=== PATIENT | female | born 1990 | race Two or more races ===

== ENCOUNTER 2021-03-09 06:13 | Inpatient (IN) | payer OTHER, SELFPAY ==
[2021-03-09] VITALS (62 sets, daily range): BP systolic 102–139; BP diastolic 59–93; PULSE 57–147; RESP 16; TEMP 36.1–36.8; O2SAT 97–100; BMI 27.8
[2021-03-09 07:39] LABS: Basophils Percent Auto 0.3 % (0.2-1.2); Eosinophils Absolute Auto 0.2 K/mm3 (0-0.3); Eosinophils Percent Auto 1.7 % (0-4.4); Hematocrit 33.5 % (37.0-47.0); Hemoglobin 10.8 g/dL (12.0-15.0); Immature Granulocyte Absolute 0.18 K/mm3 (0.00-0.031); Immature Granulocyte Percent A 1.5 % (0-0.5); Lymphocytes Percent Auto 15.8 % (18.3-44.2); Mean Corpuscular HGB Conc 32.2 g/dl (32-36); Mean Corpuscular Hemoglobin 32.2 pg (26-34); Mean Platelet Volume 10.4 fl (7.4-10.4); Monocytes Absolute Auto 0.7 K/mm3 (0.1-0.6); Monocytes Percent Auto 5.8 % (2.6-8.5); Neutrophils Percent Auto 74.9 % (45.5-73.1); Platelet Count Result 244 k/mm3 (150-375); Red Blood Count 3.35 M/mm3 (4.2-5.4); Red Cell Distribution Width 14.3 % (11.5-14.5)
[2021-03-09] MEDS: OXYTOCIN 30 UNITS/NS 500 ML 30 UNITS/500 ML BAG IV CONT (07:51)
[2021-03-09] MEDS: LACTATED RINGERS 1,000 ML 125 ML IV CONT ×2 (07:52→12:53)
[2021-03-09] MEDS: AMPICILLIN 2 GM/NS 100 ML 2 GM/100 ML BAG IVPB (07:53)
--- NOTE | 2021-03-09 08:17 | LDADM ---
This patient, Apolinar Saul, was admitted to Labor/Delivery/Recovery 104 on 03/09/21 at 06:13. Plans for labor, pain management and were discussed with patient. Patient/family oriented to hospital policies and general routines including ID bracelet, bed and alarms, visiting hours, pain management, procedures, bathroom and other care routines, personal items, smoking policy, room service/diet and guest tray routines, infant security routines, and visiting hours. Patient/Family are encouraged to report perceived risks to care and to ask questions if they do not understand what they are told or what they should do. See OBIX for further documentation.
--- NOTE | 2021-03-09 09:39 | PM.IMHP ---
H&P: HPI History of Present Illness Date/Time: 03/09/21 09:39 Patient is a 30-year-old last menstrual period 06/09/20 currently 39 weeks gestation with an RADHA 03/16/2021 who presents to labor and delivery for a scheduled elective induction of labor at term. Patient is dated by LMP consistent with ultrasound on 08/27/2020 at 11 weeks gestation. In general, patient reports feeling well today. Reports occasional contractions. Denies vaginal bleeding or leakage of fluid. Reports good movement. Chief Complaint: Induction of labor Review of Systems Review of Systems: All systems reviewed & are unremarkable except as noted in HPI and below Constitutional: Constitutional: Reports as per HPI, Reports no additional constitutional complaints, Denies chills, Denies fever(s), Denies headache(s) and Denies night sweats Eyes: Eyes: Reports as per HPI and Reports no additional eye complaints ENT: Reports system reviewed and no additional complaints, except as documented, Reports as per HPI, Reports Normal hearing present and Denies headache(s) Cardiovascular: Cardiovascular: Reports as per HPI, Reports no additional cardiovascular complaints, Denies chest pain and Denies dyspnea Respiratory: Respiratory: Reports as per HPI, Reports no additional respiratory complaints, Denies cough and Denies dyspnea Gastrointestinal: Gastrointestinal: Reports as per HPI, Reports no additional gastrointestinal complaints, Denies abdominal pain, Denies change in bowel habits, Denies change in stool character, Denies nausea and Denies vomiting Genitourinary: Genitourinary: Reports no additional female genitourinary complaints, Reports as per HPI, Denies abnormal vaginal bleeding, Denies genital lesions, Denies hot flashes, Denies dyspareunia, Denies pelvic pain, Denies sexual dysfunction, Denies urinary incontinence, Denies vaginal discharge, Denies vaginal dryness and Denies vaginal odor Musculoskeletal: Musculoskeletal: Reports no additional musculoskeletal complaints and Reports as per HPI Integumentary/Breasts: Skin/Breast: Reports system reviewed and no additional complaints, except as docu, Reports as per HPI, Denies breast pain and Denies nipple discharge Neurologic: Reports system reviewed and no additional complaints, except as documented, Reports as per HPI, Reports Normal hearing present and Denies headache(s) Psychiatric: Psychiatric: Reports no additional psychiatric complaints, Reports as per HPI, Denies anxiety and Denies depression Endocrine: Endocrine: Reports no additional endocrine complaints and Reports as per HPI Hematologic/Lymphatic: Hematologic/Lymphatic: Reports no additional hematologic/lymphatic complaints and Reports as per HPI Allergic/Immunologic: Allergic/Immunologic: Reports no additional allergic/immunologic complaints and Reports as per HPI PMFSH Past Medical History Medical History Asthma Herpes 2011 Hx of vaginal delivery x2 Surgical History Surgical History History of surgery on arm R[place] teeth removed Family History Family History Son Asthma Social History Social History Smoking status: Never smoker Alcohol intake: never Substance use: never Spiritual care concerns: No Meds Home Medications and Allergies Home Medications Medication Instructions Recorded Confirmed Type Saccharomyces boulardii 250 mg 250 mg PO .COMPLEX 08/19/20 03/09/21 History capsule albuterol sulfate 90 mcg/actuation 1 puff INHALATION Q4H PRN #6.7 g 08/19/20 03/09/21 Rx aerosol inhaler cholecalciferol (vitamin D3) 25 25 mcg PO DAILY 08/19/20 03/09/21 History mcg (1,000 unit) capsule vits-iron 27 mg-folic ac See Rx Instructions PO .COMPLEX 09/01/20 03/09/21 Rx 1 mg-om3 312 mg-dha 250 mg oral
--- NOTE | 2021-03-09 09:52 | WPDHPUPDATE1 ---
History and Physical Update Update Date/Time: 03/09/21 09:52 History and Physical has been reviewed, including an updated exam of the patient. There are NO changes in the patient's condition. Risks, benefits, and alternatives have been discussed and questions answered. Patient agrees to proceed with procedure.
[2021-03-09 09:59] LABS: Rapid Plasma Reagin Non-Reactive (NonReactive)
[2021-03-09] MEDS: AMPICILLIN 1 GM/NS 50 ML 1 GM/50 ML BAG IVPB (11:55)
--- NOTE | 2021-03-09 13:51 | PM.OBPRVD ---
OB - Delivery Note Procedure Delivery date: 03/09/21 Procedure: A 30-year-old now 003 who presented to Labor and delivery on 03/09/2021 at 39 weeks gestation for scheduled elective induction of labor at term. Patient was admitted to Labor and delivery. Patient was GBS positive and antibiotics were started for GBS prophylaxis. Pitocin was started for labor induction and continuously titrated throughout the morning. After 2nd dose of antibiotics had been administered, artificial rupture membranes was performed at 12:08 p.m. Clear amniotic fluid was noted. Pitocin was continued. Patient became uncomfortable and requested an epidural for pain management which was placed without difficulty. Patient made quick cervical change was noted to be fully dilated at 1:09 p.m. Patient was encouraged to push and found to be pushing well. She was prepped and draped for delivery. At 1:28 p.m., head delivered atraumatically and without difficulty in EDDIE presentation. Occiput restituted to maternal right side. With subsequent push, the infant's neck, shoulders, rest of body delivered without difficulty. was crying spontaneously. Nose and mouth were suctioned with bulb suction. was placed on maternal abdomen where care was assumed by awaiting nursing staff. Infant was noted to void spontaneously. Delayed cord clamping was performed for approximately 60 seconds. Cord was clamped and cut. A segment of cord was collected for cord gases. Cord blood was collected. The placenta was delivered spontaneously and intact. Uterine fundus was noted to be firm with massage. On inspection, bilateral periurethral lacerations were noted. These lacerations were repaired with 3-0 Vicryl in usual fashion. Excellent hemostasis was noted. Estimated blood loss for entire delivery was 100 cc. was a live born female , Apgars 9 and 9, weighing 6 lb 13 oz. Both mother and baby doing well at end of delivery. events: Labor Induction Intrapartal events: None Induction method: per pitocin protocol Delivery augmentation: rupture of membranes Delivery monitor: external FHT and external uterine Route of delivery: Laceration Description: Periurethral (bilateral) Delivery repair: vicryl (3-0) Specimen: Yes (cord blood and cord gases) Quantitative Blood Loss (ml): 100 Anesthesia type: Epidural Disposition: floor Complications: No immediate complications Baby Date of : 03/09/21 Time of : 13:28 Weeks of gestation at delivery: 39 Infant gender: Female Weight (pounds): 6 Weight (ounces): 13 presentation: vertex position: Right Occiput Anterior Placenta delivery description: Spontaneous cord vessel description: 3 Vessels and Delayed Cord Clamping score one minute: 9 score five minutes: 9
[2021-03-09] MEDS: OXYTOCIN 30 UNITS/NS 500 ML 30 UNITS/500 ML BAG 125 UNITS IV CONT (14:12)
--- NOTE | 2021-03-09 16:29 | PC.NURSE ---
Patient transferred to post room #284 per wheelchair from labor and delivery. Support person present. Oriented to unit, room, information board, rooming in, admission packet and security measures. Patient verbalizes understanding.
[2021-03-09] MEDS: ACETAMINOPHEN 325 MG TABLET 650 MG PO (22:17)
[2021-03-09] MEDS: IBUPROFEN 600 MG TABLET PO (22:18)
[2021-03-10 01:25] VITALS: BP 120/73; PULSE 73; RESP 16; TEMP 36.9; O2SAT 97
[2021-03-10 04:10] VITALS: BP 105/71; PULSE 80; RESP 16; TEMP 36.6; O2SAT 99
[2021-03-10] MEDS: IBUPROFEN 600 MG TABLET PO ×2 (04:24→12:09)
[2021-03-10] MEDS: ACETAMINOPHEN 325 MG TABLET 650 MG PO ×2 (04:25→12:09)
[2021-03-10 05:05] LABS: Hematocrit 34.1 % (37.0-47.0); Hemoglobin 11.2 g/dL (12.0-15.0)
--- NOTE | 2021-03-10 08:14 | PM.OBPNVD ---
OB - PN: Subj Subjective Date/time seen: 03/10/21 08:14 Doing well this AM. Reports mild cramping. Minimal lochia. Denies any headache, chest pain, SOB, N/V. Ambulating well. OB - PN: Obj Data Labs CBC & Chem 7: 03/10/21 04:26 Labs: Laboratory Results - last 24 hr 03/09/21 03/09/21 03/10/21 07:00 07:00 04:26 Hgb 11.2 L Hct 34.1 L RPR Non-reactive Blood Type O Positive Antibody Screen Negative OB - PN A/P Assessment and Plan (1) Normal spontaneous vaginal delivery: Code(s): O80 - Encounter for full-term uncomplicated delivery Status: Acute Assessment and Plan: PPD#1 doing well continue routine care dc home in stable condition emergency precautions reviewed f/u in office in 4-6 weeks Time Spent With Patient Time: Total time spent is greater than 50% in coordination of care (as documented) at patient's floor/unit and/or counseling patient: Exam Const: General: cooperative, healthy appearing, comfortable and no acute distress GI: Inspection: non-distended GI Palp: Yes Soft to palpation and No Tenderness to palpation present (GI) Other: fundus firm below umbilicus Neuro: General: patient oriented x3 Extrem: Right lower extremity: no edema Left lower extremity: no edema Other: no calf tenderness
[2021-03-10 08:15] VITALS: BP 125/88; PULSE 72; RESP 18; TEMP 37.2; O2SAT 99
--- NOTE | 2021-03-10 08:17 | PM.OBDSVD ---
DS: Admitting Diagnosis Discharge Date 03/10/21 Admitting Diagnosis Induction of labor OB - DS: Summary OB Procedures : None OB Procedures Intrapartum: Spontaneous Vag Delivery OB Procedures: : None Time Spent with Patient Time attestation: Total time spent providing and/or coordinating discharge services: DS: Data Data Completed and Pending Labs on day of discharge: Labs from last 24 hours 03/10/21 03/09/21 03/09/21 04:26 07:00 07:00 Hgb 11.2 L Hct 34.1 L RPR Non-reactive Blood Type O Positive Antibody Screen Negative Discharge Plan Discharge Attending physician on discharge: Ly Yao Discharging Clinician: Ly Yao Anticipated Discharge Date/Time: 03/10/21 08:17 Patient Disposition: Home, Self-Care Activity: pelvic rest Diet: regular Discharge Instructions: Call office ([phone]) to schedule a visit in 4-6 weeks. You may take Ibuprofen 600mg every 6 hours as needed for pain. Pain medication may make you constipated. It may be helpful to take an [id number] stool softener, such as Colace and/or Senokot, along with the pain medication to help lessen constipation. Call office or go to ED for pain not controlled with medication, headache, chest pain, shortness of breath, fever, chills, persistent nausea or vomiting, severe abdominal pain, heavy vaginal bleeding >2 pads/hour, foul vaginal discharge or odor, or problems with your breasts. Patient Instructions: Antibiotic Form Stand Alone Forms: General Discharge Information Follow-up/Referrals: Ly Yao MD [Physician] - Discharge Medications: Continued Saccharomyces boulardii [Daily Probiotic (S. boulardii)] 250 mg capsule 250 mg PO .COMPLEX RF: 0 cholecalciferol (vitamin D3) 25 mcg (1,000 unit) capsule 25 mcg PO DAILY RF: 0 albuterol sulfate 90 mcg/actuation HFA aerosol inhaler 1 puff inhalation Q4H PRN (Reason: shortness of breath or wheezing) Qty: 6.7 RF: 0 Plus DHA 27 mg iron-1 mg -312 mg-250 mg combo pack See Rx Instructions PO .COMPLEX Qty: 60 RF: 2 Discontinued valacyclovir 500 mg tablet 500 mg PO Q12H Qty: 60 RF: 0 Date of admission: 03/09/21 06:13 Primary Care Provider: PHYSICIAN,STRIPPER [employer] PRINTER Admitting Provider: Ly Yao Attending physician on admission: Ly Yao Condition: Stable
--- NOTE | 2021-03-10 08:50 | WPDANLDPN2 ---
Anes-Prog Note L&D Date/Time: 03/10/21 08:50 Comfortable throughout: labor and delivery Neuraxial method: epidural Epidural/Spinal procedure site: clean & non-tender Neuro status: Neuro function grossly intact. Cardiovascular status: normal Respiratory status: normal Airway patency: baseline Mental status: baseline Post-Op hydration status: normal Vital Signs: Last Vital Signs Temp 36.6 C 03/10/21 04:10 Pulse 80 03/10/21 04:10 Resp 16 03/10/21 04:10 BP 105/71 03/10/21 04:10 Pulse Ox 99 03/10/21 04:10 Pain score (VAS): 0 Post-procedural complaints: none Patient feedback: Patient satisfied with anesthetic care.
--- NOTE | 2021-03-10 11:15 | PC.NURSE ---
Consult with pt., mother reports infant is eagerly feeding for feedings. Mother reports tenderness with latch that decreases during the feeding. Mother has infant to breast in shallow latch in cradle positioning. Requested mother break latch and attempt with cross cradle. Infant is able to freely thrust tongue past gum ridge and flange both lips. Skin is intact on both nipples, no redness and bruising noted. Reviewed feeding cues, frequencies, duration of feedings, feeding elimination flow sheet, and signs of adequate intake. Demonstrated stimulation techniques to wake infant for feeding. Assisted with infant to breast. Reviewed positioning/alignment in cross cradle, holding breast in ?U? hold and guided asymmetrical latch on. Reviewed rational for each. Infant able to latch correctly within a few attempts. nursed eagerly with steady draws and occasional swallowing noted, some pausing noted. Reviewed signs of a correct latch, effective nursing and suck swallow ratio. Suggested mother stimulate while feeding to increase stimulation for milk supply, for increased intake and to assist with maintaining deep latch. Infant would slip to shallow latch causing tenderness. Demonstrated how to adjust latch more deeply while feeding as needed. Mother reports she can feel the difference in latch with no tenderness. Nipple care reviewed of lanolin after feedings, warm compresses as needed. Instructed mother to call out for RN assistance if she is unable to latch for feeding or she has discomfort with nursing. Instructed feeding should be initiated three hours from start of last feeding or if feeding cues are noted before. Mother voiced understanding of information shared.
[2021-03-11 07:47] VITALS: BP 123/81; PULSE 79; RESP 16; TEMP 37; O2SAT 99
== END 2021-03-10 18:18 | disposition home or self-care (01) | DRG 807 ==
LOC: ANHLDR 06:20 → ANHOB2 16:35
PROVIDERS: Admitting Provider Student in an Organized Health Care Education/Training Program; Visit Provider Student in an Organized Health Care Education/Training Program
DX: O99.824 Streptococcus B carrier state complicating childbirth (principal); Z37.0 Single live birth; O71.82 Other specified trauma to perineum and vulva; O62.3 Precipitate labor; Z3A.39 39 weeks gestation of pregnancy
CPT/HCPCS: 36415; 85014; 85018; 85025; 86592; 86850; 86900; 86901; A9270; J0290; J2590; J2795; J7120